=== PATIENT | female | born 1960 | race Two or more races ===

== ENCOUNTER 2020-02-18 11:14 | Outpatient (CLI) | payer OTHER ==
[2020-02-18] MEDS ORDERED: CIPRO HC OTIC S10 ML OT (12:28)
== END 2020-02-18 12:30 | disposition home or self-care (01) ==
LOC: OFIC 805 11:14
PROVIDERS: ATTEND Otolaryngology
DX: M54.2 Cervicalgia (principal); K13.79 Other lesions of oral mucosa; H61.23 Impacted cerumen, bilateral

== ENCOUNTER 2020-04-17 11:47 | Outpatient (CLI) | payer OTHER ==
[~2020-04-17 11:47] MED LIST: CIPRO HC OTIC S10 ML OT
== END 2020-04-17 12:30 | disposition home or self-care (01) ==
LOC: OFIC 805 11:47
PROVIDERS: ATTEND Otolaryngology
DX: K13.79 Other lesions of oral mucosa (principal); M54.2 Cervicalgia

== ENCOUNTER 2020-05-15 08:13 | Outpatient (CLI) | payer OTHER | END 2020-05-15 16:04 | disposition home or self-care (01) | LOC: OFIC 805 08:13 | PROVIDERS: ATTEND Otolaryngology | DX: K13.79 Other lesions of oral mucosa (principal) ==

== ENCOUNTER → 2020-08-14 | Outpatient (CLI) | payer OTHER | END | disposition home or self-care (01) | LOC: OFIC 805 08:50 | PROVIDERS: ATTEND Otolaryngology | DX: K13.79 Other lesions of oral mucosa (principal) ==